=== PATIENT | female | born 1950 | race Native Hawaiian/Other Pacific Islander ===

== ENCOUNTER 2018-07-04 06:17 | Outpatient (CLI) | payer OTHER, MEDICARE | END 2018-07-04 06:18 | disposition home or self-care (01) | LOC: C.LAB 06:17 | DX: E11.9 Type 2 diabetes mellitus without complications (principal) ==

== ENCOUNTER 2018-09-14 07:43 | Outpatient (CLI) | payer OTHER | END 2018-09-14 07:44 | disposition home or self-care (01) | LOC: C.RADIC 07:43 | DX: M17.11 Unilateral primary osteoarthritis, right knee (principal) ==

== ENCOUNTER → 2018-10-06 | Outpatient (CLI) | payer OTHER | LOC: C.LAB 07:03 | DX: E11.9 Type 2 diabetes mellitus without complications (principal) ==